=== PATIENT | male | born 2000 | race Two or more races ===

== ENCOUNTER 2023-07-26 15:45 | Emergency (ER) | payer OTHER ==
[~2023-07-26] VITALS: Ht 185.4 cm; Wt 90.7 kg
[2023-07-26] MEDS ORDERED: LIDOCAINE 1%-EPI 1:100,000 20 ML VIAL ONE (18:16)
[2023-07-26] MEDS ORDERED: SULF1TAB48 PO (18:47)
[2023-07-26] MEDS ORDERED: IBUP-1955 PO (18:47)
[2023-07-26] MEDS ORDERED: ACET-2605 PO (18:47)
[2023-07-26] MEDS ORDERED: CYCL5TAB PO (18:47)
[2023-07-26 19:01] VITALS: BP 167/106; TEMP 98.2; O2SAT 97
== END 2023-07-26 19:01 | disposition home or self-care (01) ==
LOC: ER 15:49
DX: L05.01 Pilonidal cyst with abscess (principal); M54.50 Low back pain, unspecified; J06.9 Acute upper respiratory infection, unspecified
CPT/HCPCS: 10080; 99283; J3490